=== PATIENT | female | born 1945 | race Caucasian/White ===

== ENCOUNTER 2018-02-10 01:13 | Outpatient (CLI) | payer MEDICARE, BC, SELFPAY ==
[2018-02-10 12:39] LABS: ALT 20 U/L (12-78); AST 22 U/L (15-37); Albumin 3.7 g/dL (3.4-5.0); Alkaline Phosphatase 48 U/L (46-116); Anion Gap 7.2 mmol/L (3-11); BUN 15 mg/dL (7-18); Bilirubin, Total 0.5 mg/dL (0.2-1.0); CO2 29.8 mmol/L (21.0-32.0); CREATININE 0.79 mg/dL (0.55-1.02); Calcium 9.3 mg/dL (8.5-10.1); Chloride 104 mmol/L (98-107); Cholesterol 203 mg/dL (50-200); Glucose 85 mg/dL (70-100); HDL Cholesterol 119 mg/dL (40-60); LDL CHOLESTEROL 64 mg/dL (<100); Potassium 4.8 mmol/L (3.5-5.1); Sodium 141 mmol/L (136-145); TSH 2.03 uIU/mL (0.358-3.74); Total Protein 6.4 g/dL (6.4-8.2); Triglyceride 31 mg/dL (30-150)
== END 2018-02-10 01:33 ==
PROVIDERS: PCP Family Medicine; Visit Provider Family Medicine
DX: I10 Essential (primary) hypertension (principal); E03.9 Hypothyroidism, unspecified
CPT/HCPCS: 36415; 80053; 80061; 83721; 84443

== ENCOUNTER 2018-08-14 08:32 | Outpatient (CLI) | payer MEDICARE, BC, SELFPAY ==
[2018-08-14 09:11] LABS: Absolute Basophil Count 0.03 k/cumm (0.0-0.2); Absolute Eosinophil Count 0.11 k/cumm (0.0-0.7); Absolute Lymphocyte Count 1.62 k/cumm (1.2-3.4); Absolute Monocyte Count 0.37 k/cumm (0.11-0.7); Absolute Neutrophil Count 1.75 k/cumm (1.2-6.7); Basophils % 0.8; Eosinophils % 2.8; HCT 36.1 % (36.0-46.0); HGB 11.9 g/dL (12.0-15.5); Lymphocytes % 41.8; Mean Corpuscular Hemoglobin 31.6 pg (27.0-33.0); Mean Corpuscular Volume 95.8 fL (80-95); Mean Platelet Volume 9.9 fL (8.0-11.0); Monocytes % 9.5; Neutrophils % 45.1; Platelet Count 243 x1000/uL (130-400); RBC 3.77 m/cumm (4.00-5.20); RBC Distribution Width 12.8 % (11.7-14.6); White Blood Cell Count 3.88 k/cumm (4.4-10.8)
[2018-08-14 11:02] LABS: ALT 22 U/L (12-78); AST 19 U/L (15-37); Albumin 3.7 g/dL (3.4-5.0); Alkaline Phosphatase 60 U/L (46-116); Anion Gap 7.1 mmol/L (3-11); BUN 18 mg/dL (7-18); Bilirubin, Total 0.3 mg/dL (0.2-1.0); CO2 29.9 mmol/L (21.0-32.0); CREATININE 0.86 mg/dL (0.55-1.02); Chloride 103 mmol/L (98-107); Ferritin 118 ng/mL (8-388); Glucose 85 mg/dL (70-100); Potassium 4.6 mmol/L (3.5-5.1); Sodium 140 mmol/L (136-145); TSH 2.68 uIU/mL (0.358-3.74); Total Protein 6.7 g/dL (6.4-8.2)
[2018-08-14 11:15] LABS: ESR 10 MM/HR (0-30)
[2018-08-14 11:17] LABS: C-Reactive Protein < 0.05 mg/dL (0.0-0.3)
[2018-08-14 13:52] LABS: Folate 14.6 ng/mL (8.6-20.0); Vitamin B12 356 pg/mL (193-986)
== END 2018-08-14 08:52 ==
PROVIDERS: PCP Family Medicine; Visit Provider Emergency Medicine
DX: R53.83 Other fatigue (principal); E03.9 Hypothyroidism, unspecified; D64.9 Anemia, unspecified
CPT/HCPCS: 36415; 80053; 85652; 82607; 82728; 82746; 84443; 85025; 86140

== ENCOUNTER 2018-08-17 11:28 | Outpatient (CLI) | payer MEDICARE, BC, SELFPAY ==
[2018-08-17 12:59] LABS: Amylase 107 U/L (25-115); Lipase 253 U/L (73-393)
[2018-08-17 14:04] LABS: Bilirubin Negative (Negative); Blood Negative (Negative); Clarity Clear; Glucose Negative (Negative); Ketones Negative (Negative); Leukocyte Esterase Trace (Negative); Nitrite Negative (Negative); Urobilinogen 0.2 EU/dL (Up TO 0.2); pH 6.5 (5-8)
[2018-08-17 14:24] LABS: Bacteria Negative HPF (Negative); C & S Indicated? Yes; Casts Negative LPF (Negative); Crystals Negative HPF (Negative); Epithelial Cells Rare HPF (Negative); Mucus Negative (Negative); RBC 0-2 (0-2)
== END 2018-08-17 11:48 ==
PROVIDERS: PCP Family Medicine; Visit Provider Family Medicine
DX: R10.9 Unspecified abdominal pain (principal)
CPT/HCPCS: 36415; 83690; 81003; 81015; 82150; 87086

== ENCOUNTER 2020-01-31 03:19 | Outpatient (CLI) | payer MEDICARE, BC, SELFPAY ==
[2020-02-01 18:05] LABS: Patient Race White; SARS-CoV-2 RNA Undetected (Undetected); SARS-CoV-2 Specimen Source Nasal
== END 2020-01-31 03:39 ==
PROVIDERS: PCP Family Medicine; Visit Provider Emergency Medicine
DX: Z11.59 Encounter for screening for other viral diseases (principal)
CPT/HCPCS: U0003